=== PATIENT | male | born 1980 | race Caucasian/White ===

== ENCOUNTER → 2017-12-11 | Outpatient (CLI) | payer BC ==
--- NOTE | 2017-12-11 09:25 | RADIOLOGY REPORT ---
STRESS TEST REPORT PATIENT NAME: DAVY HUNTER ROOM#: DATE OF SERVICE: 12/11/2017 AGE: 37Y ORDER#: [id number] REFERRING MD: Key Pirde PA-C PROCEDURE PERFORMED: EKG treadmill stress test. INDICATION: For assessment of angina. Chest pain is described as a left precordial chest tightness and heaviness. Coronary artery risk factors include hypertension and hypercholesterolemia. REPORT Significant physical findings prior to stress testing showed a blood pressure of 123/84 with a heart rate of 80 bpm with no ectopy. Auscultation of the heart showed an S4 with no murmur. Resting 12-lead EKG showed normal sinus rhythm, IVCD, early transition. PROCEDURE: Patient was exercised on a standard Darell protocol. He walked a total of 7 minutes, achieving a peak heart rate of 173 bpm, which is 94% of the maximum predicted heart rate for age. The test was stopped because of severe shortness of breath. At peak exercise he had no chest discomfort other than shortness of breath, specifically no chest pains. Exercise ECG showed no ST depressions to suggest ischemia. No arrhythmias were seen. Blood pressure response was normal, and at peak exercise the blood pressure was 203/86 mmHg. Double product was 35.1 K. SUMMARY OF FINDINGS/IMPRESSION: 1. No chest pain symptoms reproduced. 2. No EKG evidence of ischemia. 3. Normal blood pressure response. 4. No exercise-induced arrhythmias. 5. Average exercise tolerance, average aerobic capacity, and negative diagnostic EKG treadmill stress test. INTERPRETING PHYSICIAN: NEISHA COTTRELL M.D. /: [id number] TT: 0901 ID: [id number] /: [id number] TD: 0836 JOB: [id number] cc:Saima HARTMAN PA-C > MTDScott
== END ==
LOC: SP 07:25
PROVIDERS: ATTEND Physician Assistant
DX: I20.9 Angina pectoris, unspecified (principal)
CPT/HCPCS: 93017